=== PATIENT | female | born 1965 | race Caucasian/White ===

== ENCOUNTER → 2019-06-19 09:44 | Outpatient (BNVA) | payer MEDICARE, MEDICAID, SELFPAY | PROVIDERS: Family Provider Registered Nurse; PCP Registered Nurse; Visit Provider Specialist | DX: M25.511 Pain in right shoulder (principal) | CPT/HCPCS: 73030 ==

== ENCOUNTER → 2019-10-13 14:35 | Outpatient (BNVA) | payer MEDICARE, MEDICAID, SELFPAY | PROVIDERS: Family Provider Registered Nurse; PCP Registered Nurse; Visit Provider Registered Nurse | DX: B37.9 Candidiasis, unspecified (principal) | CPT/HCPCS: 81000 ==

== ENCOUNTER → 2019-12-21 00:01 | Outpatient (BNVA) | payer MEDICARE, MEDICAID, SELFPAY | PROVIDERS: Family Provider Registered Nurse; PCP Registered Nurse; Visit Provider Registered Nurse | DX: R10.12 Left upper quadrant pain (principal); E78.5 Hyperlipidemia, unspecified; I10 Essential (primary) hypertension; E11.9 Type 2 diabetes mellitus without complications | CPT/HCPCS: 36416; 80053; 80061; 81000; 82962; 83036; 83721; 85025 ==

== ENCOUNTER → 2019-12-28 14:06 | Outpatient (BNVA) | payer MEDICARE, MEDICAID, SELFPAY | PROVIDERS: Family Provider Registered Nurse; PCP Registered Nurse; Visit Provider Registered Nurse | DX: R10.9 Unspecified abdominal pain (principal) | CPT/HCPCS: 82270 ==

== ENCOUNTER 2020-01-09 07:03 | Day surgery (SDC) | payer MEDICARE, MEDICAID, SELFPAY ==
[2020-01-05 14:20] VITALS: BMI 34.2
[2020-01-09] MEDS: sodium chloride 0.9% 1,000 ML 30 ML IV (07:43)
--- NOTE | 2020-01-09 07:43 | ANES.PREANE2 ---
Pre-Anesthetic Assessment Pre-Anesthetic Assessment: Height/Weight: Height 1.57 m Weight 84.822 kg Preop Diagnosis: pain, screening Proposed Procedure: Operation Date: 01/09/20 07:00 Proposed Procedures p EGD/colon with poss biopsy [id number] L31.84 R11.43 Z12.11(Not Applicable) - Nacho Asencio MD s Colonoscopy with poss biopsy poss polpectomy(Not Applicable) - Nacho Asencio MD Was Beta Margaret taken within 24 hours: N/A Last intake: Intake Last Liquid Date 01/08/20 Last Liquid Time 23:30 Last Solid Date 01/07/20 Last Solid Time 18:00 Social: Social History: No alcohol and No tobacco Exam: Pre-Anes Outpt Exam: alert, oriented x 3, clear to auscultation bilaterally and regular rate & rhythm Airway: Submandibular: WNL Cervical ROM: WNL MP: 2 Dentition: Chipped History/ROS: No significant history except as noted Pulmonary: Pulmonary: Asthma CV/HEM: CV/HEM: HTN : : None reported Hepatic: Hepatic: None reported GI: GI: None reported Metabolic: Metabolic: DM and Hyperlipidemia Musc/skel: Musc/skel: Fibromyalgia Neuropsych: Neuropsych: Anxiety, Bipolar and Depression Anesthetic Plan: ASA status: 3 Anesthesia: Anesthesia Evaluation and MAC Risk of > 500 ml blood loss (7ml/kg in children): No PFSH Anesthesia PFSH: Medical History Bipolar 2 disorder Deformity, 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, bilateral Diabetes Dysfunction of right rotator cuff Hypertension Tear of right supraspinatus tendon Surgical History H/O arthroscopy of right knee H/O: hysterectomy History of carpal tunnel release Family History Father Diabetes Other CAD (coronary artery disease) Hypertension Stroke Denies family history of Anesthesia complication Bleeding disorder Cancer Social History Smoking and tobacco status: former smoker Alcohol intake: current Alcohol intake frequency: 0-2 Drinks per Day Household members: spouse Marital status: Single Current occupational status: unemployed History of recent travel: No Data Anesthesia Cardiac Studies: No Data to Display
[2020-01-09 07:48] LABS: Glucose Point of Care 143 mg/dL (70-110)
--- NOTE | 2020-01-09 07:58 | W.PM.OPSUD ---
Surgery/Procedure H&P Update DATE OF PROCEDURE: January 09, 2020 DATE H&P PERFORMED: 01/02/20 H&P UPDATE INFORMATION: I have reviewed H&P completed within last 30 days, I have examined patient prior to procedure and No changes to prior documentation PREOP DIAGNOSIS: pain, screening PLANNED PROCEDURE: Operation Date: 01/09/20 07:00 Proposed Procedures p EGD/colon with poss biopsy [id number] L31.84 R11.43 Z12.11(Not Applicable) - Nacho Asencio MD s Colonoscopy with poss biopsy poss polpectomy(Not Applicable) - Nacho Asencio MD
[2020-01-09 08:26] VITALS: BP 96/55; PULSE 93; RESP 16; TEMP 36.1; O2SAT 97
== END 2020-01-09 09:00 | disposition home or self-care (01) ==
PROVIDERS: PCP Registered Nurse; Visit Provider Surgery
PROC: 0DJ08ZZ Inspection of Upper Intestinal Tract, Via Natural or Artificial Opening Endoscopic (ICD-10-PCS; CPT 43235; principal; 2020-01-09 07:00)
PROC: 0DJD8ZZ Inspection of Lower Intestinal Tract, Via Natural or Artificial Opening Endoscopic (ICD-10-PCS; CPT 45378; 2020-01-09 07:00)
DX: Z12.11 Encounter for screening for malignant neoplasm of colon (principal); D12.5 Benign neoplasm of sigmoid colon; K64.8 Other hemorrhoids; K20.9 Esophagitis, unspecified; K29.70 Gastritis, unspecified, without bleeding; J45.909 Unspecified asthma, uncomplicated; I10 Essential (primary) hypertension; E11.9 Type 2 diabetes mellitus without complications; E78.5 Hyperlipidemia, unspecified
CPT/HCPCS: 12345; 36416; 43239; 45380; 82962; 88305; J2704; J7030

== ENCOUNTER → 2020-02-05 11:00 | Outpatient (BNVA) | payer MEDICARE, MEDICAID, SELFPAY | PROVIDERS: PCP Registered Nurse; Visit Provider Registered Nurse | DX: E78.2 Mixed hyperlipidemia (principal); E11.9 Type 2 diabetes mellitus without complications; J45.20 Mild intermittent asthma, uncomplicated | CPT/HCPCS: 80061 ==

== ENCOUNTER → 2020-04-11 08:46 | Outpatient (BNVA) | payer MEDICARE, MEDICAID, SELFPAY | PROVIDERS: PCP Registered Nurse; Visit Provider Registered Nurse | DX: E11.9 Type 2 diabetes mellitus without complications (principal); Z79.899 Other long term (current) drug therapy | CPT/HCPCS: 80053; 83036 ==

== ENCOUNTER → 2020-08-06 08:44 | Outpatient (BNVA) | payer MEDICARE, MEDICAID, SELFPAY | PROVIDERS: PCP Registered Nurse; Visit Provider Registered Nurse | DX: E11.9 Type 2 diabetes mellitus without complications (principal); I10 Essential (primary) hypertension | CPT/HCPCS: 80053; 83036 ==

== ENCOUNTER → 2021-03-11 08:34 | Outpatient (BNVA) | payer MEDICARE, MEDICAID, SELFPAY | PROVIDERS: PCP Registered Nurse; Visit Provider Registered Nurse | DX: E11.9 Type 2 diabetes mellitus without complications (principal); M54.2 Cervicalgia; M54.6 Pain in thoracic spine; M54.50 Low back pain, unspecified; G89.29 Other chronic pain | CPT/HCPCS: 80053; 83036 ==

== ENCOUNTER 2021-04-09 07:42 | Outpatient (CLI) | payer MEDICARE, MEDICAID, SELFPAY ==
--- NOTE | 2021-04-09 07:50 | MR_ITS ---
WS: [id number] MRI CERVICAL SPINE NONCONTRAST TECHNIQUE: Sagittal T1, T2 and STIR imaging. Axial T2, gradient, and fiesta imaging. CLINICAL INFORMATION: M54.12 - Radiculopathy, cervical region COMPARISON: None. FINDINGS: Straightening of the normal cervical lordosis. Moderate spondylitic changes. Disc space narrowing wor se at C5-C6 and C6-C7. C2-C3: Normal. C3-C4: Mild disc bulging and osteophytic ridging. Mild left and no significant right foraminal narrow ing. Spinal canal is patent. C4-C5: Mild disc osteophyte complex with endplate ridging. Slight effacement of ventral thecal sac. M ild left and no significant right foraminal narrowing. Mild facet arthropathy. C5-C6: Mild disc osteophyte complex with endplate ridging. Mild central canal stenosis. Moderate bila teral bony foraminal narrowing left greater than right. Mild facet arthropathy. C6-C7: Left pericentral disc osteophyte protrusion with indentation left ventral cervical cord. Mild to moderate central canal stenosis. Moderate left and mild to moderate right bony foraminal narrowing . Mild facet arthropathy. C7-T1: Spinal canal and foramen are patent. No significant disc bulging. Tiny central protrusions in the upper thoracic spine at T2-3 T3-4 and T4-5 partially visualized. A few small thyroid nodules largest lower pole left thyroid measuring 7 mm. MR/MR cervical spin wo con* [id number] IMPRESSION: 1. Straightening of the normal cervical lordosis. Mild cervical curve. Moderat e spondylitic changes. 2. Disc osteophyte complex at C5-C6 and C6-C7 with endplate degenerative espinosa es. Mild to moderate central canal stenosis. 3. Left pericentral disc osteophyte protrusion C6-C7 with indentation left kyle tral cervical cord and mild to moderate central canal stenosis. 4. Moderate bilateral bony foraminal narrowing C5-C6 and left C6-C7. 5. Mild left C3-C4 and right C6-C7 bony foraminal narrowing.
== END 2021-04-09 07:43 | disposition home or self-care (01) ==
LOC: RADSHAW 07:44
PROVIDERS: PCP Registered Nurse; Visit Provider Registered Nurse
DX: M54.12 Radiculopathy, cervical region (principal); M25.78 Osteophyte, vertebrae; M48.02 Spinal stenosis, cervical region
CPT/HCPCS: 72141

== ENCOUNTER → 2021-04-11 11:14 | Outpatient (BNVA) | payer MEDICARE, MEDICAID, SELFPAY | PROVIDERS: PCP Registered Nurse; Visit Provider Registered Nurse | DX: R53.83 Other fatigue (principal) | CPT/HCPCS: 84443 ==

== ENCOUNTER → 2021-04-17 13:42 | Outpatient (BNVA) | payer MEDICARE, MEDICAID, SELFPAY | PROVIDERS: PCP Registered Nurse; Referring Provider Registered Nurse; Visit Provider Physician Assistant | DX: M48.9 Spondylopathy, unspecified (principal) | CPT/HCPCS: 72050 ==

== ENCOUNTER → 2021-06-30 00:01 | Outpatient (BNVA) | payer MEDICARE, MEDICAID, SELFPAY | PROVIDERS: PCP Registered Nurse; Visit Provider Orthopaedic Surgery | DX: M50.30 Other cervical disc degeneration, unspecified cervical region (principal); M47.22 Other spondylosis with radiculopathy, cervical region; Z46.89 Encounter for fitting and adjustment of other specified devices; M54.2 Cervicalgia | CPT/HCPCS: 87635; L0174 ==

== ENCOUNTER 2021-06-30 08:16 | Outpatient (CLI) | payer MEDICARE, MEDICAID, SELFPAY | END 2021-06-30 08:17 | disposition home or self-care (01) | LOC: SPT 07-01 08:17 | PROVIDERS: PCP Registered Nurse; Visit Provider Orthopaedic Surgery | DX: Z46.89 Encounter for fitting and adjustment of other specified devices (principal); M54.2 Cervicalgia | CPT/HCPCS: L0174 ==

== ENCOUNTER 2021-07-04 05:48 | Day surgery (SDC) | payer MEDICARE, MEDICAID, SELFPAY ==
[2021-06-30 09:47] VITALS: BMI 37.3
--- NOTE | 2021-06-30 10:35 | ANES.PREANE2 ---
Pre-Anesthetic Assessment Pre-Anesthetic Assessment: Height/Weight: Height 1.57 m Weight 92.533 kg Preop Diagnosis: pain, screening Proposed Procedure: Operation Date: 07/04/21 08:50 Proposed Procedures p Anterior Cervical Discectomy & Fusion C5/6 C6/7(Not Applicable) - Willy Farrell, DO Was Beta Margaret taken within 24 hours: N/A Was Clonidine taken within 24 hours: N/A Social: Social History: No alcohol and No tobacco Exam: Pre-Anes Outpt Exam: alert, oriented x 3, clear to auscultation bilaterally and regular rate & rhythm Airway: Submandibular: WNL Cervical ROM: Other (Limited in extension and flexion, rotation . Dizziness with extension when standing. ) MP: 2 Dentition: Chipped (Chipped and missing teeth) Pulmonary: Pulmonary: Asthma, COPD and VU CV/HEM: CV/HEM: HTN Comments: METS = 4 able to ascend flight of stairs w/o CP does have SOB. : : None reported Hepatic: Hepatic: None reported GI: GI: GERD and PUD (Gastritis hx) Comments: Severe GERD, on empty stomach has reflux, if leans over after having water fluid comes up. Denies hiatal hernia. Metabolic: Metabolic: DM Neuropsych: Neuropsych: Bipolar Comments: CT neck 04/27 XR/XR cervical spine 4-5V [id number] Impression: 1. Degenerative disc narrowing at C5-C6 and C6-C7 with accompanying osteophyte formation. 2. Negative for limitation of motion or subluxation on flexion or extension. Anesthetic Plan: ASA status: 2 Anesthesia: Anesthesia Evaluation and General Other: Discussed risk and beneftis of GETA w/ plan for RSI or modified RSI, 2 IV, possible arterial line. Risk of > 500 ml blood loss (7ml/kg in children): No Other Pertinent Information: EKG ordered pending. 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, bilateral Diabetes Dysfunction of right rotator cuff Esophagitis determined by endoscopy Gastritis Hypertension Mixed hyperlipidemia Tear of right supraspinatus tendon Surgical History H/O arthroscopy of right knee H/O esophagogastroduodenoscopy (01/09/20) H/O: hysterectomy History of carpal tunnel release Status post colonoscopy with polypectomy (01/09/20) Family History Father Diabetes Other CAD (coronary artery disease) Hypertension Stroke Denies family history of Anesthesia complication Bleeding disorder Cancer Social History Alcohol intake: current Alcohol intake frequency: 0-2 Drinks per Day Household members: spouse Marital status: Single Current occupational status: unemployed History of recent travel: No Data Anesthesia Cardiac Studies: No Data to Display
--- NOTE | 2021-06-30 10:39 | ECG_ITS ---
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 Measurements Intervals [place] Rate: 73 P: 36 NC: 133 QRS: 31 QRSD: 96 T: 33 QT: 361 QTc: 400 Interpretive Statements SINUS RHYTHM POSSIBLE RIGHT VENTRICULAR CONDUCTION DELAY [RSR (QR) IN V1/V2] No previous ECG available for comparison Electronically Signed On 07-01-2021 0:01:10 WARP KNITTER by Milind Carcamo M.D. [id number]
[2021-06-30 11:41] LABS: Anion Gap 18.1 (5-19); Blood Urea Nitrogen 15 mg/dL (6-20); Calcium 9.6 mg/dL (8.5-10.5); Carbon Dioxide 20 mmol/L (22-29); Chloride 103 mmol/L (98-107); Glucose 139 mg/dL (65-115); Osmolality Calculated 287 mOsm/kg (285-295); Potassium 4.1 mmol/L (3.5-5.1); Sodium 137 mmol/L (136-145)
[2021-07-04] VITALS (9 sets, daily range): BP systolic 104–127; BP diastolic 60–80; PULSE 58–86; RESP 16–22; TEMP 36.2–36.4; O2SAT 91–96
--- NOTE | 2021-07-04 | XR_ITS ---
WS: [id number] C-ARM RADIOGRAPHS C-SPINE; 3 IMAGES HISTORY: ACDF COMPARISON: None available. Intraoperative imaging during anterior cervical fusion. Anterior cervical fusion hardware is noted fr om C5 to C7. Other details are limited. XR/XR cervical spine 3V* [id number] IMPRESSION: Intraoperative imaging during anterior cervical fusion.
--- NOTE | 2021-07-04 | SCC_ITS ---
Procedure done: 1. Anterior diskectomy C5/6 2. Anterior discectomy C6/7 3. Insertion of cage C5/6 4. Insertion of Cage C6/7 5. Instrumentation with anterior plate from C5-C7 6. Use of allograft 8.4 seconds of fluoroscopic guidance, for a cumulative dose of 2.9 mGy, was provided to Dr. Farrell by the radiology department. C-arm images of the cervical spine were saved for the patient's permanent record. KAITD
[2021-07-04 06:33] LABS: Glucose Point of Care 123 mg/dL (70-110)
--- NOTE | 2021-07-04 06:40 | ANES.PAUD2 ---
Pre-Anesthetic Update Pre-Anesthetic Assessment: Date of Surgery/Procedure: 07/04/21 Preop Diagnosis: Cervical Raaadiculopathy Proposed Procedure: Operation Date: 07/04/21 07:00 Proposed Procedures p Anterior Cervical Discectomy & Fusion C5/6 C6/7(Not Applicable) - Willy Farrell DO Changes from Pre-Anesthetic Assessment: Lower front tooth loose Last Intake: Intake Last Liquid Date 07/03/21 Last Liquid Time 19:00 Last Solid Date 07/03/21 Last Solid Time 18:00 Vitals: Temperature 97.2 F L 07/04/21 06:11 Temperature Source Temporal Artery S can 07/04/21 06:11 Pulse Rate 86 07/04/21 06:11 Respiratory Rate 18 07/04/21 06:11 Blood Pressure 122/80 07/04/21 06:11 Blood Pressure Светлана n 94 07/04/21 06:11 Pulse Oximetry 96 07/04/21 06:11 Oxygen Delivery Me thod 07/04/21 06:18 Exam: Pre-Anes Outpt Exam: alert, oriented x 3, clear to auscultation bilaterally and regular rate & rhythm Cardiac Studies: No Data to Display
[2021-07-04] MEDS: sodium chloride 0.9% 1,000 ML 30 ML IV (06:47)
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
[2021-07-04] MEDS: scopolamine 1.5 Patch 1 PATCH TRANSDERMA (06:55)
--- NOTE | 2021-07-04 09:23 | P.PCN_ITS ---
PACU note Narrative: VSS, Good respiratory effort, report to VENEER JOINTER OPERATOR Exam: awake
--- NOTE | 2021-07-04 09:23 | PM.PACU ---
PACU note Narrative: VSS, Good respiratory effort, report to HOME CARE LIAISON Exam: awake
--- NOTE | 2021-07-04 09:24 | P.OP_ITS ---
Operative Report Date of procedure: July 04, 2021 Pre-op diagnosis: Preop Diagnosis Cervical spondylosis with radiculopathy Post-op diagnosis: same Procedure done: 1. Anterior diskectomy C5/6 2. Anterior discectomy C6/7 3. Insertion of cage C5/6 4. Insertion of Cage C6/7 5. Instrumentation with anterior plate from C5-C7 6. Use of allograft Surgeon: Willy Farrell Head Of Mathematics: Baldev Remy Head Of Mathematics: The quality assistant, Baldev Remy, LISA was needed for his expertise under the microscope. He was important and necessary throughout the procedure to complete in a safe and timely manner. He assisted with patient positioning prepping and draping tissue retraction suctioning of the operative field protection of the dural sac and tissue closure Estimated blood loss (mL): 20 Procedure: 1. Anterior diskectomy C5/6 2. Anterior discectomy C6/7 3. Insertion of cage C5/6 4. Insertion of Cage C6/7 5. Instrumentation with anterior plate from C5-C7 6. Use of allograft The patient was taken to the operating room, where he underwent general endotracheal anesthesia without complications. He was then positioned supine on the operating table, and all areas of impingement were well padded. The arms were carefully padded and tucked at his sides. A roll was placed between the shoulder blades.. An x-ray was done to determine the appropriate level for the skin incision. The entire neck was then sterilely prepped and draped in the usual fashion. Neuromonitoring was attached prior to prepping. A transverse skin incision was made and carried down to the platysma muscle. This was then split in line with its fibers. Blunt dissection was carried down medial to the carotid sheath and lateral to the trachea and esophagus until the anterior cervical spine was visualized. A needle was placed into a disc and an x-ray was done to determine its location. The longus colli muscles were then elevated bilaterally with the electrocautery unit. Self-retaining retractors were placed deep to the longus colli muscle. Attention was brought to the C5/6 level that was confirmed on x-ray. A caspar pin was placed into the C5 vertebrae and the C6 vertebrae. The disk space was then distracted. The microscope was then brought in. A radical anterior discectomies were performed at C5/6. This included complete removal of the anterior annulus, nucleus, and posterior annulus. The posterior longitudinal ligament was removed as were the posterior osteophytes. Foraminotomies were then accomplished bilaterally. This was done using a high speed felipe, kerrison rongeurs and curretes Once all of this was accomplished, the curved currette was used to check for any residual compression. The central canal was wide open as were the foramen. A high-speed bur was used to remove the cartilaginous endplates above and below the interspace. Bleeding cancellous bone was exposed. The disc space were measured and appropriate size cage were placed sterilely onto the field. Allograft graft was packed into the cages. The cage was then placed and there was good juxtaposition against the bleeding decorticated surfaces and good distraction of each interspace. Attention was brought to the next interspace.The [place] pins were removed. Bone wax was used to prevent any bleeding from occurring at the pin sites. Attention was brought to the C6/7 level that was confirmed on x-ray. A caspar pin was placed into the C6 vertebrae and the C7 vertebrae. The disk space was then distracted. The microscope was then brought in. A radical anterior discectomies were performed at C6/7. This included complete removal of the anterior annulus, nucleus, and posterior annulus. The posterior longitudinal ligament was removed as were the posterior osteophytes. Foraminotomies were then accomplished bilaterally. This was done using a high speed felipe, kerrison rongeurs and curretes Once all of this was accomplished, the curved currette was used to check for any residual compression. The central canal was wide open as were the foramen. A high-speed bur was used to remove the cartilaginous endplates above and below the interspace. Bleeding cancellous bone was exposed. The disc space were measured and appropriate size cage were placed sterilely onto the field. Allograft graft was packed into the cages. The cage was then placed and there was good juxtaposition against the bleeding decorticated surfaces and good distraction of each interspace. Attention was brought to the next interspace. The [place] pins were removed. Bone wax was used to prevent any bleeding from occurring at the pin sites. The appropriate size anterior cervical locking plate was chosen and bent into gentle lordosis. One screws were then placed into each of the vertebral bodies at C5, C6 and C7. There was excellent purchase. A final x-ray was done confirming good position of the hardware and Cages. The locking screws were then applied, also with excellent purchase. Following a final copious irrigation, there was good hemostasis and no dural leaks. The carotid pulse was strong. The wounds were then closed in layers using 2-0 Vicryl suture for the platysma muscle, 2-0 Vicryl suture for the subcutaneous tissue, and 4-0 monocryl suture in a subcuticular skin closure. Glue was placed followed by application of a sterile dressing. The drain was hooked to bulb suction. A soft collar was applied. The patient was then carefully returned to the supine position on his hospital bed where he was reversed and extubated and taken to the recovery room having tolerated the procedure well.
[2021-07-04] MEDS: HYDROcodone-acetaminophen 5-325 mg Tablet 1 TAB PO (10:14)
--- NOTE | 2021-07-04 12:14 | ANE.PACU2 ---
Inpatient post-anesthesia follow up: Airway intact: Yes Vital signs: Temperature 97.6 F Pulse Rate 62 Respiratory Rate 18 Blood Pressure 118/68 Pulse Oximetry 94 Oxygen Delivery Me thod Room Air Oxygen Flow Rate 6 Fraction of Inspir ed Oxygen Hydration adequate: Yes Nausea and vomiting: No Pain level: 3 Mental status: Baseline
== END 2021-07-04 10:40 | disposition home or self-care (01) ==
PROVIDERS: Anesthesiology; PCP Registered Nurse; Visit Provider Orthopaedic Surgery
PROC: 0RB30ZZ Excision of Cervical Vertebral Disc, Open Approach (ICD-10-PCS; CPT 22551; principal; 2021-07-04 07:00)
DX: M47.812 Spondylosis without myelopathy or radiculopathy, cervical region (principal); J45.909 Unspecified asthma, uncomplicated; E11.9 Type 2 diabetes mellitus without complications; I10 Essential (primary) hypertension; E78.2 Mixed hyperlipidemia; Z82.49 Family history of ischemic heart disease and other diseases of the circulatory system; Z83.3 Family history of diabetes mellitus
CPT/HCPCS: 20930; 22551; 22552; 22845; 22853 ×2; 36416; 51702; 72040; 76000; 80048; 82962; 93005; C1713; J0330; J0690; J1100; J1170; J2370; J2405; J2704; J2710; J3010; J3490; J7030

== ENCOUNTER → 2021-08-12 09:59 | Outpatient (BNVA) | payer MEDICARE, MEDICAID, SELFPAY | PROVIDERS: PCP Registered Nurse; Visit Provider Orthopaedic Surgery | DX: M47.22 Other spondylosis with radiculopathy, cervical region (principal) | CPT/HCPCS: 72040 ==

== ENCOUNTER → 2021-09-11 09:05 | Outpatient (BNVA) | payer MEDICARE, MEDICAID, SELFPAY | PROVIDERS: PCP Registered Nurse; Visit Provider Orthopaedic Surgery | DX: M47.22 Other spondylosis with radiculopathy, cervical region (principal); Z47.89 Encounter for other orthopedic aftercare; Z98.890 Other specified postprocedural states; Z98.1 Arthrodesis status | CPT/HCPCS: 72040; 99024; 99213 ==

== ENCOUNTER → 2021-10-23 15:09 | Outpatient (BNVA) | payer MEDICARE, MEDICAID, SELFPAY | PROVIDERS: PCP Registered Nurse; Visit Provider Registered Nurse | DX: J45.20 Mild intermittent asthma, uncomplicated (principal); E78.2 Mixed hyperlipidemia; E11.9 Type 2 diabetes mellitus without complications | CPT/HCPCS: 80053; 83036 ==

== ENCOUNTER → 2022-02-17 10:14 | Outpatient (BNVA) | payer MEDICARE, MEDICAID, SELFPAY | PROVIDERS: PCP Registered Nurse; Visit Provider Registered Nurse | DX: J18.9 Pneumonia, unspecified organism (principal); E11.9 Type 2 diabetes mellitus without complications | CPT/HCPCS: 80053; 83036; 85025 ==

== ENCOUNTER 2022-03-09 09:54 | Outpatient (CLI) | payer MEDICARE, MEDICAID, SELFPAY ==
--- NOTE | 2022-03-09 10:15 | CT_ITS ---
WS: [id number] LDCT LUNG CANCER SCREENING TECHNIQUE: Noncontrast CT of the chest with coronal and sagittal reformatted images. CLINICAL INFORMATION: Z12.2 - Encounter for screening for malignant neoplasm of.. COMPARISON: None. DLP: 71.49 mGy.cm DIvol: Mean CTDIvol: 1.60 (mGy) All CT scans at [facility] use at least one of these dose optimization techniques: automat ed exposure control; mA and/or kV adjustment per patient size (includes targeted exams where dose is matched to clinical indication); or iterative reconstruction. FINDINGS: 3.5 mm noncalcified nodule RIGHT lower lobe along the fissure. Tiny noncalcified nodule RIGHT middle lobe along the fissure. Tiny noncalcified nodule RIGHT middle lobe anteriorly. No axillary lymphadenopathy. No mediastinal or hilar lymphadenopathy. Minimal coronary calcification . LEFT adrenal adenoma measuring 18 mm. Adrenal Glands are otherwise normal. CT/CT lung screening [id number] IMPRESSION: LUNG-RADS: 2-Benign Appearance or Behavior FOLLOW UP: 12 Month: Continue annual screening with LDCT
== END 2022-03-09 09:55 | disposition home or self-care (01) ==
LOC: RAD 09:56
PROVIDERS: PCP Registered Nurse; Visit Provider Registered Nurse
DX: Z12.2 Encounter for screening for malignant neoplasm of respiratory organs (principal); Z87.891 Personal history of nicotine dependence
CPT/HCPCS: 71271

== ENCOUNTER 2022-04-13 09:50 | Outpatient (CLI) | payer MEDICARE, MEDICAID, SELFPAY ==
--- NOTE | 2022-04-13 09:58 | MM_ITS ---
WS: [id number] Bilateral screening 3D tomosynthesis digital mammogram, 04/13/2022 Clinical Data: Z12.31 - Encounter for screening mammogram for malignant ... Comparison: 08/27/2020, 11/12/2016, 03/20/2014. Findings: The breast parenchymal pattern shows fat replacement. No spiculated masses or clustered calcification s are seen. There are no secondary signs of carcinoma. There are small well cysts mostly in the left breast. MM/[place] [id number] Impression: 1. Negative bilateral mammogram unchanged. 2. Recommend annual screening mammograms. BIRADS: 1-Negative FOLLOW UP: 1 Year Follow-up The CAD food checkers and cashiers supervisor was used.
== END 2022-04-13 09:51 | disposition home or self-care (01) ==
LOC: RAD 09:50
PROVIDERS: PCP Registered Nurse; Visit Provider Registered Nurse
DX: Z12.31 Encounter for screening mammogram for malignant neoplasm of breast (principal)
CPT/HCPCS: 77063; 77067

== ENCOUNTER → 2022-09-24 09:34 | Outpatient (BNVA) | payer MEDICARE, MEDICAID, SELFPAY | PROVIDERS: PCP Registered Nurse; Visit Provider Registered Nurse | DX: E11.9 Type 2 diabetes mellitus without complications (principal) | CPT/HCPCS: 80061; 83036 ==

== ENCOUNTER → 2023-03-04 09:40 | Outpatient (BNVA) | payer MEDICARE, MEDICAID, SELFPAY | PROVIDERS: PCP Registered Nurse; Visit Provider Registered Nurse | DX: Z00.00 Encounter for general adult medical examination without abnormal findings (principal); E11.43 Type 2 diabetes mellitus with diabetic autonomic (poly)neuropathy; K31.84 Gastroparesis | CPT/HCPCS: 80053; 80061; 82043; 83036; 85025 ==

== ENCOUNTER → 2023-03-11 08:19 | Outpatient (BNVA) | payer MEDICARE, MEDICAID, SELFPAY | PROVIDERS: PCP Registered Nurse; Referring Provider Registered Nurse; Visit Provider Specialist | DX: G56.02 Carpal tunnel syndrome, left upper limb (principal); M47.22 Other spondylosis with radiculopathy, cervical region | CPT/HCPCS: 95910 ==

== ENCOUNTER → 2023-12-21 09:21 | Outpatient (BNVA) | payer MEDICARE, MEDICAID, SELFPAY | PROVIDERS: PCP Registered Nurse; Visit Provider Registered Nurse | DX: E11.9 Type 2 diabetes mellitus without complications (principal) | CPT/HCPCS: 80053; 80061; 82043; 83036; 85025 ==

== ENCOUNTER 2024-03-22 14:14 | Outpatient (CLI) | payer MEDICARE, MEDICAID, SELFPAY ==
--- NOTE | 2024-03-22 14:30 | MM_ITS ---
WS: [id number] Bilateral screening 3D tomosynthesis digital mammogram, 03/22/2024 2:40 PM Clinical Data: Z12.31 - Encounter for screening mammogram for malignant ... Comparison: 04/13/2022, 08/27/2020, 11/13/2016, 03/20/2014. Findings: No spiculated masses or clustered calcifications are seen. There are no secondary signs of carcinoma . There are several benign calcifications in the left breast. MM/MM scr BI tomosynthesis [id number] Impression: Negative bilateral mammogram unchanged. Recommend annual screening mammograms. BIRADS: 1 - Negative. FOLLOW UP: 1 Year Follow-up DENSITY: The breasts are almost entirely fatty. The CAD dump grounds checker was used
--- NOTE | 2024-03-22 15:00 | XR_ITS ---
WS: [id number] DEXA (DUAL ENERGY X-RAY ABSORPTIOMETRY) Bone mineral density was performed using a [employer] machine. HISTORY: M81.0 - Age-related osteoporosis without current patholog... COMPARISON: None available. Lumbar spine BMD (L1-L4): 1.196 g/cm2 T score: 0.1 Z score: 0.5 Total hip BMD: Left: 1.103 g/cm2. T score: 0.8 Z score: 1.1 Right: 1.156 g/cm2. T score: 1.2 Z score: 1.5 10 year probability of a major osteoporotic fracture is 6.2%. XR/XR DEXA axial skeleton* [id number] IMPRESSION: NORMAL BONE MINERAL DENSITY based upon the WHO classification for females.
== END 2024-03-22 14:15 | disposition home or self-care (01) ==
LOC: RAD 14:15
PROVIDERS: PCP Registered Nurse; Visit Provider Registered Nurse
DX: Z12.31 Encounter for screening mammogram for malignant neoplasm of breast (principal); Z13.820 Encounter for screening for osteoporosis; M81.0 Age-related osteoporosis without current pathological fracture; R92.1 Mammographic calcification found on diagnostic imaging of breast
CPT/HCPCS: 77063; 77067; 77080

== ENCOUNTER → 2024-10-06 11:37 | Outpatient (BNVA) | payer MEDICARE, MEDICAID, SELFPAY | PROVIDERS: PCP Registered Nurse; Visit Provider Registered Nurse | DX: E11.9 Type 2 diabetes mellitus without complications (principal) | CPT/HCPCS: 80053; 80061; 81000; 83036; 85025 ==